=== PATIENT | female | born 1985 | race African-American/Black ===

== ENCOUNTER 2018-06-20 22:30 | Observation (INO) ==
[2018-06-20] MEDS ORDERED: Sod Chloride 0.9% Inj 1,000 ML IV.CONT SCH (23:45)
--- NOTE | 2018-06-20 23:51 | XR ---
EXAM DATE: 06/20/2018 11:46 PM EDT AGE/SEX: 33 years / Female INDICATIONS: Shortness of breath. CLINICAL DATA: This is the patient's initial encounter. Patient reports that signs and symptoms have been present for 1 day and indicates a pain score of 0/10. MEDICAL/SURGICAL HISTORY: None. None. COMPARISON: No prior exams available for comparison. FINDINGS: A single AP view of the chest demonstrates the lungs to be symmetrically aerated without evidence of mass, infiltrate or effusion. The cardiomediastinal contours are unremarkable. Osseous structures a re intact. CONCLUSION: The lungs are clear. Electronically signed by: Jayce Castillo MD 06/20/2018 11:50 PM EDT
[2018-06-21 00:10] LABS: Bilirubin,Urine Negative (Negative); Clarity,Urine Clear (Clear); Color,Urine Yellow (Yellw/Straw); Leukocyte Esterase,Urine Negative (Negative); Nitrite,Urine Negative (Negative); PH,Urine 6.5 (5.0-8.5); Specific Gravity,Urine 1.015 (1.002-1.035); Urobilinogen,Urine 0.2 mg/dL (Less than 2)
[2018-06-21 00:12] LABS: Baso # (Auto) 0.1 th/mm3 (0.0-0.2); Baso % (Auto) 0.8 % (0.0-2.0); Eos # (Auto) 0.1 th/mm3 (0.0-0.4); Eos % (Auto) 1.4 % (0.0-4.0); Hematocrit 32.1 % (35.0-46.0); Hemoglobin 11.2 gm/dL (11.6-15.3); Lymph % (Auto) 39.3 % (9.0-44.0); Mean Corpuscular Hemoglobin 28.5 pg (27.0-34.0); Mean Corpuscular Volume 81.3 fL (80.0-100.0); Mean Platelet Volume 8.4 fL (7.0-11.0); Mono # (Auto) 0.5 th/mm3 (0.0-0.9); Mono % (Auto) 4.9 % (0.0-8.0); Neut # (Auto) 5.5 th/mm3 (1.8-7.7); Neut % (Auto) 53.6 % (16.0-70.0); Platelet Count 330 th/mm3 (150-450); Red Blood Count 3.94 mil/mm3 (4.00-5.30); Red Cell Distribution Width 15.9 % (11.6-17.2); White Blood Count 10.2 th/mm3 (4.0-11.0)
[2018-06-21 00:19] LABS: Chloride 105 meq/L (98-107); Potassium 4.2 meq/L (3.5-5.1); Sodium 138 meq/L (136-145)
[2018-06-21 00:22] LABS: Calcium 8.1 mg/dL (8.5-10.1)
[2018-06-21 00:23] LABS: Albumin 2.8 g/dL (3.4-5.0); Anion Gap 8 meq/L (5-15); Blood Urea Nitrogen 15 mg/dL (7-18); Carbon Dioxide 24.9 meq/L (21.0-32.0); Glucose,Random 256 mg/dL (74-106); Lipase 212 U/L (73-393)
[2018-06-21 00:25] LABS: Alanine Aminotransferase 47 U/L (10-53); Aspartate Aminotransferase 90 U/L (15-37)
[2018-06-21 00:26] LABS: Glomerular Filtration Rate Greater Than 89 mL/min (>89)
[2018-06-21 00:27] LABS: RBC,Urine 0-3 /hpf (0-3); Squamous Epithelial Cell,Urine 0-5 /hpf (0-5); Total Protein 7.1 g/dL (6.4-8.2); WBC,Urine 0-5 /hpf (0-5)
[2018-06-21 00:28] LABS: Alkaline Phosphatase 107 U/L (45-117)
[2018-06-21 00:40] LABS: Creatine Kinase 3339 U/L (26-192)
[2018-06-21 00:52] LABS: CKMB Percent 0.7 % (0.0-4.0); Creatine Kinase MB 22.6 ng/mL (0.5-3.6)
[2018-06-21] MEDS ORDERED: Sod Chloride 0.9% Inj 1,000 ML IV.SIG SCH ×2 (01:45→03:30)
--- NOTE | 2018-06-21 02:04 | ED ---
HPI General Chief Complaint: Abdominal Pain Stated Complaint: Abd pain /trouble breathing Time Seen by Provider: 06/20/18 23:31 Source: patient Mode of arrival: ambulatory Limitations: no limitations History of Present Illness HPI narrative: 33-year-old female presents to the emergency department for complaint of abdominal pain and associated shortness of breath. Patient has history of hypertension and diabetes. Patient is out of all of her prescription medications. Patient does not take control pills. Patient states that the areas of abdominal pain are associated with soft tissue swelling. Patient denies any known injury. No fever chills. No nausea vomiting or diarrhea. No hematemesis no coffee-ground emesis no melena hematochezia. No urinary symptoms. No chest pain. Patient states that when she has abdominal pain it makes her feel short of breath. Patient is unable to identify exacerbating or alleviating factors. MD complaint: abdominal pain Onset (ago): day(s) Pain Consistency: constant Location: diffuse Severity: severe Quality: cramping, stabbing and fullness Radiation: none Migration to: LUQ, RUQ and epigastric Relieving factors: nothing Exacerbating factors: nothing Context: other Associated symptoms: nausea Treatments prior to arrival: other (nothing) Related Data Home Medications Medication Instructions Recorded Confirmed amlodipine [Norvasc] 10 mg PO DAILY 06/20/18 06/20/18 gabapentin 600 mg PO BID 06/20/18 06/20/18 lisinopril 20 mg PO DAILY 06/20/18 06/20/18 metformin 500 mg PO BID 06/20/18 06/20/18 omeprazole magnesium [Prilosec OTC] 20 mg PO DAILY 06/20/18 06/20/18 Allergies Allergy/AdvReac Type Severity Reaction Status Date / Time acetaminophen Allergy Severe Swelling Verified 06/20/18 22:49 Influenza Virus Vaccines Allergy Severe "FLU" Verified 06/20/18 22:49 propoxyphene Allergy Severe Swelling Verified 06/20/18 22:49 Review of Systems ROS: all other systems reviewed are negative [facility] Medical History Medical History History of chronic hypertension (Acute) Hx of diabetes mellitus (Acute) Hx of diabetic neuropathy (Acute) Social History Social History Substance History: No History of Abuse Second Hand Smoke Exposure: Yes Smoking Status: Light tobacco smoker Tobacco Type: Cigarettes How Often Do You Have a Drink Containing Alcohol: Never Recent Travel in [place] within the Last 8 Weeks: No Recent Out of Country Travel within the Last 8 Weeks: No Immunization History Tetanus Immunization: <5 Years Hx Influenza Vaccine This Season: No Exam Narrative Exam Narrative: GENERAL: Well-nourished, well-developed patient. SKIN: Focused skin assessment warm/dry. HEAD: Normocephalic. EYES: No scleral icterus. No injection or drainage. NECK: Supple, trachea midline. No JVD or lymphadenopathy. CARDIOVASCULAR: Regular rate and rhythm without murmurs, gallops, or rubs. RESPIRATORY: Breath sounds equal bilaterally. No accessory muscle use. GASTROINTESTINAL: Abdomen soft, diffusely tender to palpation without guarding or rebound, no ecchymosis no abrasion no erythema, no point tenderness, no palpable mass, no suprapubic pressure or bilateral lower quadrant tenderness to palpation however large pannus makes exam difficult, small reducible umbilical hernia nontender to direct palpation or reduction, nondistended. MUSCULOSKELETAL: No cyanosis, or edema. BACK: Nontender without obvious deformity. No CVA tenderness. Course Initial Documented Vital Signs Temperature 97.9 F 06/20/18 22:37 Pulse Rate 87 06/20/18 22:37 Respiratory Rate 16 06/20/18 22:37 Blood Pressure 131/75 06/20/18 22:37 Pulse Oximetry 97 06/20/18 22:37 Last Documented Vital Signs Temperature 97.9 F 06/20/18 22:37 Pulse Rate 87 06/21/18 02:30 Respiratory Rate 16 06/21/18 02:30 Blood Pressure 127/77 06/21/18 02:30 Pulse Oximetry 99 06/21/18 02:30 Medical Decision Making MDM Narrative Medical decision making narrative: 33-year-old female with known history of hypertension and diabetes presents with abdominal pain and complaint of shortness of breath. IV access obtained specimens collected and sent for resulting EKG performed sinus rhythm no acute ST elevation injury pattern or ectopy noted. 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 Patient states she did not hit her head did not have loss of was able to get back up off the ground and continue to work but was sent home from work by her employer due to her injury. Patient denies any upper extremity or lower extremity numbness tingling or weakness. Patient has had no ataxia gait. But does note that since her fall that is when she noted this discomfort to her left abdominal wall and pain when she would move or take a deep breath on her left lower lateral chest wall. Patient has not noticed any bruising to the site. Patient estimates the truck that height was approximately 4 feet and she fell from a standing height as she was moving backwards off of the truck and lost her balance. Patient denies other injury and denies other fall. Patient is aware of elevated [place] of 3300. CT reveals no acute findings on abdomen and pelvis is identified to have large left ovarian cyst although patient nontender in the lower abdomen symptoms seem to be primarily in the area of the left upper abdominal wall and left upper quadrant however mild diffuse tenderness throughout and no guarding or rebound no evidence of incarcerated umbilical hernia. Still unclear as to source of elevation of CK and unaware of trending of present CK patient continues complain of pain will give additional IV fluids for hydration with plan for observation admission discussed with [facility] MD for obs to trend CK. Possibly CK elevation related to abdominal wall contusion status post fall from pickup truck from standing versus due to chronic elevation versus due to unidentified maintenance prescription/medication versus early rhabdomyolysis. Medical Screen Exam Complete: Yes Emergency Medical Condition: Yes Differential Diagnosis Differential Diagnosis: Abdominal pain, gastritis, peptic ulcer disease, pancreatitis, esophageal spasm, cholecystitis, atypical chest pain, chest pain, PE, pneumonia, uncontrolled diabetes Medical Records Medical records reviewed: Yes I reviewed the patient's medical records. Lab Data Result diagrams: 06/21/18 00:00 06/21/18 00:00 POC Results POC Urine Results Negative Lab Results 06/21/18 06/21/18 06/21/18 Range/Units 00:00 00:00 00:00 CBC w Diff Auto diff final WBC 10.2 (4.0-11.0) th/mm3 RBC 3.94 L (4.00-5.30) mil/mm3 Hgb 11.2 L (11.6-15.3) gm/dL Hct 32.1 L (35.0-46.0) % MCV 81.3 (80.0-100.0) fL MCH 28.5 (27.0-34.0) pg MCHC 35.0 (32.0-36.0) % RDW 15.9 (11.6-17.2) % Plt Count 330 (150-450) th/mm3 MPV 8.4 (7.0-11.0) fL Neut % (Auto) 53.6 (16.0-70.0) % Lymph % (Auto) 39.3 (9.0-44.0) % Duchesne % (Auto) 4.9 (0.0-8.0) % Eos % (Auto) 1.4 (0.0-4.0) % Baso % (Auto) 0.8 (0.0-2.0) % Neut # (Auto) 5.5 (1.8-7.7) th/mm3 Lymph # (Auto) 4.0 (1.0-4.8) th/mm3 Duchesne # (Auto) 0.5 (0.0-0.9) th/mm3 Eos # (Auto) 0.1 (0.0-0.4) th/mm3 Baso # (Auto) 0.1 (0.0-0.2) th/mm3 WBC Differential . Differential Comment . Sodium 138 (136-145) meq/L Potassium 4.2 (3.5-5.1) meq/L Chloride 105 (98-107) meq/L Carbon Dioxide 24.9 (21.0-32.0) meq/L Anion Gap 8 (5-15) meq/L BUN 15 (7-18) mg/dL Creatinine 0.62 (0.50-1.00) mg/dL Estimated GFR Greater than 89 (>89) mL/min Random Glucose 256 H (74-106) mg/dL Calcium 8.1 L (8.5-10.1) mg/dL Total Bilirubin 0.1 L (0.2-1.0) mg/dL AST 90 H (15-37) U/L ALT 47 (10-53) U/L Alkaline Phosphatase 107 (45-117) U/L Total Creatine Kinase 3339 H (26-192) U/L CK-MB (CK-2) 22.6 H (0.5-3.6) ng/mL CK-MB (CK-2) % 0.7 (0.0-4.0) % Troponin I Less than 0.02 L (0.02-0.05) ng/mL Total Protein 7.1 (6.4-8.2) g/dL Albumin 2.8 L (3.4-5.0) g/dL Lipase 212 (73-393) U/L Urine Color Yellow (Yellw/Straw) Urine Clarity Clear (Clear) Urine pH 6.5 (5.0-8.5) Ur Specific Stevens 1.015 (1.002-1.035) Urine Protein Negative (Neg-Trace) mg/dL Urine Glucose (UA) 1000 or greater H (Negative) mg/dL Urine Ketones Negative (Negative) mg/dL Urine Occult Blood Negative (Negative) Urine Nitrate Negative (Negative) Urine Bilirubin Negative (Negative) Urine Urobilinogen 0.2 (Less than 2) mg/dL Ur Leukocyte Esterase Negative (Negative) Urine RBC 0-3 (0-3) /hpf Urine WBC 0-5 (0-5) /hpf Ur Squamous Epith Cells 0-5 (0-5) /hpf Micro UA Comment Culture not ind Ur Microscopic Review Microscopic reviewed Urine Culture Comments Culture not ind Urine Opiates Screen (Neg) Ur Barbiturates Screen (Neg) Ur Amphetamines Screen (Neg) U Benzodiazepines Scrn (Neg) Urine Cocaine Screen (Neg) U Cannabinoids Screen (Neg) 06/21/18 Range/Units 00:00 CBC w Diff WBC (4.0-11.0) th/mm3 RBC (4.00-5.30) mil/mm3 Hgb (11.6-15.3) gm/dL Hct (35.0-46.0) % MCV (80.0-100.0) fL MCH (27.0-34.0) pg MCHC (32.0-36.0) % RDW (11.6-17.2) % Plt Count (150-450) th/mm3 MPV (7.0-11.0) fL Neut % (Auto) (16.0-70.0) % Lymph % (Auto) (9.0-44.0) % Duchesne % (Auto) (0.0-8.0) % Eos % (Auto) (0.0-4.0) % Baso % (Auto) (0.0-2.0) % Neut # (Auto) (1.8-7.7) th/mm3 Lymph # (Auto) (1.0-4.8) th/mm3 Duchesne # (Auto) (0.0-0.9) th/mm3 Eos # (Auto) (0.0-0.4) th/mm3 Baso # (Auto) (0.0-0.2) th/mm3 WBC Differential Differential Comment Sodium (136-145) meq/L Potassium (3.5-5.1) meq/L Chloride (98-107) meq/L Carbon Dioxide (21.0-32.0) meq/L Anion Gap (5-15) meq/L BUN (7-18) mg/dL Creatinine (0.50-1.00) mg/dL Estimated GFR (>89) mL/min Random Glucose (74-106) mg/dL Calcium (8.5-10.1) mg/dL Total Bilirubin (0.2-1.0) mg/dL AST (15-37) U/L ALT (10-53) U/L Alkaline Phosphatase (45-117) U/L Total Creatine Kinase (26-192) U/L CK-MB (CK-2) (0.5-3.6) ng/mL CK-MB (CK-2) % (0.0-4.0) % Troponin I (0.02-0.05) ng/mL Total Protein (6.4-8.2) g/dL Albumin (3.4-5.0) g/dL Lipase (73-393) U/L Urine Color (Yellw/Straw) Urine Clarity (Clear) Urine pH (5.0-8.5) Ur Specific Stevens (1.002-1.035) Urine Protein (Neg-Trace) mg/dL Urine Glucose (UA) (Negative) mg/dL Urine Ketones (Negative) mg/dL Urine Occult Blood (Negative) Urine Nitrate (Negative) Urine Bilirubin (Negative) Urine Urobilinogen (Less than 2) mg/dL Ur Leukocyte Esterase (Negative) Urine RBC (0-3) /hpf Urine WBC (0-5) /hpf Ur Squamous Epith Cells (0-5) /hpf Micro UA Comment Ur Microscopic Review Urine Culture Comments Urine Opiates Screen Neg (Neg) Ur Barbiturates Screen Neg (Neg) Ur Amphetamines Screen Neg (Neg) U Benzodiazepines Scrn Neg (Neg) Urine Cocaine Screen Neg (Neg) U Cannabinoids Screen Neg (Neg) Imaging Data Radiologist's impression: Chest X-Ray 06/20/18 23:36 CONCLUSION: The lungs are clear. Abdomen/Pelvis CT 06/21/18 00:16 CONCLUSION: 1. Fat-containing periumbilical hernia. 2. 6.9 cm cystic left adnexal mass. Digital diagnosis includes ovarian cyst. Cystic ovarian neoplasm. No free fluid in the abdomen. 3. Mild hepatic steatosis. Discharge Plan Discharge Disposition Patient Disposition: 30 Still Patient Discharge Condition Condition: Stable Discharge Details Diagnosis: Elevated CK, Type 2 diabetes mellitus, Ovarian cyst Physicians Team ED Provider: Aylin Charles Primary Care Provider: UNKNOWN, Attending Provider: Manohar Fleming Status ED Status: Admitted Observation Patient
--- NOTE | 2018-06-21 02:11 | CT ---
EXAM DATE: 06/21/2018 1:50 AM EDT AGE/SEX: 33 years / Female INDICATIONS: Abdominal pain. CLINICAL DATA: This is the patient's initial encounter. Patient reports that signs and symptoms have been present for 1 day and indicates a pain score of 6/10. MEDICAL/SURGICAL HISTORY: Hypertension. Diabetes. None. ORAL CONTRAST: No oral contrast ingested. RADIATION DOSE: 22.40 CTDI (mGy) COMPARISON: [facility] [place], CT ABDOMEN & PELVIS W CONTRAST, 09/18/2015. . TECHNIQUE: Multiple contiguous axial images were obtained through the abdomen and pelvis following b olus infusion of 100 ml Omnipaque 350 (iohexol) nonionic water-soluble contrast as a single exam do se. No oral contrast ingested. Using automated exposure control and adjustment of the mA and/or kV a ccording to patient size, radiation dose was kept as low as reasonably achievable to obtain optimal d iagnostic quality images. DICOM format image data is available electronically for review and compari son. FINDINGS: Lower Lungs: The visualized lower lungs are clear. Liver: Mild diffuse hypodensity of the liver indicating mild hepatic steatosis. No focal mass. Gallbl adder within normal limits. Spleen: Homogeneous density without enlargement. Pancreas: Unremarkable without mass or calcification. Kidneys: Normal in size and shape. No evidence of mass or hydronephrosis. Adrenal Glands: Unremarkable. Aorta: The aorta and proximal iliac vessels are grossly unremarkable without aneurysmal dilation. Bowel/Mesentery: No evidence of bowel dilatation. No free air or free fluid. Appendix within normal limits. Abdominal Wall: Fat-containing periumbilical hernia measuring 3.5 cm in axial dimension. Retroperitoneum: No evidence of adenopathy in the retrocrural, para-aortic, or deep pelvic regions. Bladder: Contours are smooth. Reproductive Organs: 6.9 cm cystic left adnexal mass. 3 cm anterior lower uterine segment hypodense mass may represent a nabothian cyst. Inguinal: The inguinal region is unremarkable without evidence of adenopathy. Bony Structures: Unremarkable. CONCLUSION: 1. Fat-containing periumbilical hernia. 2. 6.9 cm cystic left adnexal mass. Digital diagnosis includes ovarian cyst. Cystic ovarian neoplasm . No free fluid in the abdomen. 3. Mild hepatic steatosis. Electronically signed by: Faraz Hunter MD 06/21/2018 2:10 AM EDT
[2018-06-21] MEDS ORDERED: Bisacodyl 10 MG Supp RECTAL PRN (03:18)
[2018-06-21] MEDS: Sod Chloride 0.9% Inj 1,000 ML IV.CONT SCH ×2 (03:42→15:38)
[2018-06-21 03:47] LABS: Amphetamine Screen,Urine Neg (Neg); Barbiturate Screen,Urine Neg (Neg); Cannabinoid Screen,Urine Neg (Neg); Cocaine Screen,Urine Neg (Neg)
[2018-06-21 03:54] LABS: Opiate Screen,Urine Neg (Neg)
[2018-06-21] MEDS ORDERED: Ketorolac Inj 30 MG/ML (IVP) Vial IV.PUSH ONE (04:44)
[2018-06-21 04:53] LABS: CKMB Percent 0.6 % (0.0-4.0); Creatine Kinase MB 19.5 ng/mL (0.5-3.6)
[2018-06-21] MEDS ORDERED: Dextrose 50% in Water 50 ML Vial IV.PUSH PRN (06:07)
[2018-06-21] MEDS: Insulin NovoLOG Aspart Correctional Sugar Inj SQ SCH ×3 (08:54→20:14)
[2018-06-21] MEDS ORDERED: Naloxone Inj 0.4 MG/ML Vial IV.PUSH PRN (08:59)
[2018-06-21] MEDS: Lisinopril 20 MG Tablet PO SCH (09:46)
[2018-06-21] MEDS: Senna/Docusate Sodium 8.6/50 MG Tablet PO SCH ×2 (09:46→20:08)
[2018-06-21] MEDS: amLODIPine 10 MG Tablet PO SCH (09:46)
[2018-06-21] MEDS: Gabapentin 300 MG Capsule PO SCH ×2 (09:46→20:07)
[2018-06-21] MEDS: Pantoprazole Sodium 20 MG DR Tablet PO SCH (09:46)
--- NOTE | 2018-06-21 11:04 | P.HP ---
History of Present Illness Primary Care Physician: UNKNOWN Chief Complaint: Abdominal pain History of Present Illness: This is a 33-year-old female with a history of hypertension, diabetes mellitus with neuropathy and obesity. She presents to the emergency department because of abdominal pain. Reports of chronic intermittent bilateral upper quadrant pain making it difficult for her to breathe. Yesterday she had a fall while at work. She was moving plants climbing off a pickup truck bed when she lost her balance and fell backwards and landed on her left side. She then presents to the emergency department because of worsening discomfort. Denies fever, chills , nausea, vomiting UTI symptoms, constipation and diarrhea. States her pain is pleuritic worse with body movements. Abdominal CT was performed which showed fat-containing periumbilical hernia, 6.9 cm cystic left adnexal mass and mild hepatic steatosis. She also has rhabdomyolysis CK over 3000. Patient also reports of migraine headache which she describes a right sided throbbing discomfort associated with increased sensitivity to light and loud noise. Denies visual changes, neck pain, numbness and focal weakness. All other systems reviewed negative Review of Systems All other systems reviewed negative except as stated in HPI PMFSH - History History Provided By: Patient - Medical History Medical History: Medical History (Last Reviewed 06/21/18 @ 12:49 by Bonifacio Mooney MD) History of chronic hypertension Hx of diabetes mellitus Hx of diabetic neuropathy - Family History Family History: Family History (Last Updated 06/21/18 @ 12:49 by Bonifacio Mooney MD) Other Family history of cancer - Tobacco History Second Hand Smoke Exposure: Yes Tobacco Use In Past 30 Days: Yes Smoking Status: Current every day smoker Tobacco Type: Cigarettes - Alcohol History How Often Do You Have a Drink Containing Alcohol: Never - Substance Use History Substance History: No History of Abuse - Travel History Recent Travel in the [place] Within the Last 8 Weeks: No Recent Travel Out of the Country Within the Last 8 Weeks: No - Immunization History Tetanus Immunization: <5 Years Hx Influenza Vaccine This Season: No Medications and Allergies Active Medications: Active Medications Al Hydroxide/Mg Hydroxide (Milk Of Amie Liq) 30 ml PO Q12H PRN PRN Reason: Mild Constipation Amlodipine Besylate (Norvasc) 10 mg PO DAILY [facility] Last Admin: 06/21/18 09:46 Dose: 10 mg Bisacodyl (Dulcolax Supp) 10 mg RECTAL DAILY PRN PRN Reason: SEVERE CONSITIPATION Dextrose (D50w Vial) 50 ml IV.PUSH UNSCH PRN PRN Reason: PER HYPOGLYCEMIA PROTOCOL Gabapentin (Neurontin) 600 mg PO BID [facility] Last Admin: 06/21/18 09:46 Dose: 600 mg Glucagon (Glucagon Inj) 1 mg OTHER PRN PRN PRN Reason: for Hypoglycemia Protocol Sodium Chloride (Ns Inj) 1,000 mls @ 0 mls/hr IV.SIG BOLUS [facility] Last Infusion: 06/21/18 04:29 Dose: Infused Sodium Chloride (Ns Inj) 1,000 mls @ 150 mls/hr IV.CONT .Q6H40M [facility] Last Infusion: 06/21/18 04:40 Dose: 150 mls/hr Sodium Chloride (Ns Inj) 1,000 mls @ 0 mls/hr IV.SIG BOLUS [facility] Ibuprofen (Motrin) 400 mg PO Q6HR PRN PRN Reason: PAIN 1-10/HEADACHE Insulin Aspart (Novolog Insulin Correctional Sugar Inj) 0 unit SQ ACHS [facility]; Protocol Last Admin: 06/21/18 08:54 Dose: Not Given Ketorolac Tromethamine (Toradol Inj) 15 mg IV.PUSH Q6H PRN PRN Reason: BREAKTHROUGH PAIN Stop: 06/26/18 08:58 Lactulose (Lactulose Liq) 30 ml PO DAILY PRN PRN Reason: SEVERE CONSITIPATION Lisinopril (Prinivil) 20 mg PO DAILY [facility] Last Admin: 06/21/18 09:46 Dose: 20 mg Naloxone HCl (Narcan Inj) 0.4 mg IV.PUSH UNSCH PRN PRN Reason: SEE LABEL COMMENTS Ondansetron HCl (Zofran Inj) 4 mg IV.PUSH Q6H PRN PRN Reason: NAUSEA OR VOMITING Pantoprazole Sodium (Protonix) 20 mg PO DAILY [facility] Last Admin: 06/21/18 09:46 Dose: 20 mg Senna/Docusate Sodium (Johana-Colace) 1 tab PO BID [facility] Last Admin: 06/21/18 09:46 Dose: 1 tab Sennosides (Senokot) 17.2 mg PO Q12H PRN PRN Reason: Moderate Constipation Sodium Chloride (Ns Flush) 2 ml IV.FLUSH PRN PRN PRN Reason: FLUSH AFTER USING IV ACCESS Allergies Allergy/AdvReac Type Severity Reaction Status Date / Time acetaminophen Allergy Severe Swelling Verified 06/20/18 22:49 Influenza Virus Vaccines Allergy Severe "FLU" Verified 06/20/18 22:49 propoxyphene Allergy Severe Swelling Verified 06/20/18 22:49 Home Medications Medication Instructions Recorded Confirmed Type amlodipine [Norvasc] 10 mg PO DAILY 06/20/18 06/20/18 History gabapentin 600 mg PO BID 06/20/18 06/20/18 History lisinopril 20 mg PO DAILY 06/20/18 06/20/18 History metformin 500 mg PO BID 06/20/18 06/20/18 History omeprazole magnesium [Prilosec OTC] 20 mg PO DAILY 06/20/18 06/20/18 History Exam Vital signs: Vital Signs 06/20/18 22:37 06/20/18 23:19 06/20/18 23:45 Temperature 97.9 F Pulse Rate 87 87 90 Respiratory Rate 16 18 Blood Pressure 131/75 119/61 Pulse Oximetry 97 100 06/21/18 02:30 06/21/18 05:10 06/21/18 08:00 Temperature 96.4 F L 97.9 F Pulse Rate 87 79 69 Respiratory Rate 16 20 19 Blood Pressure 127/77 119/66 117/63 Pulse Oximetry 99 95 96 Intake & Output 06/20/18 06/21/18 06/21/18 18:59 06:59 18:59 Intake Total 1000 / 1000 240 / 240 Balance 1000 / 1000 240 / 240 Weight 143.7 kg Intake: IV 1000 / 1000 NS Inj 1,000 ML @ Wide Open IV. 1000 / 1000 SIG BOLUS [facility] Rx#:[id number] Oral 240 / 240 Other: # Voids 1 Weight On Admission 142.1 kg Narrative: GENERAL: Well-developed, obese in no distress SKIN: Warm and dry. HEAD: Atraumatic. Normocephalic. EYES: Pupils equal and round. No scleral icterus. No injection or drainage. ENT: No nasal bleeding or discharge. Mucous membranes pink and moist. NECK: Trachea midline. No JVD. CARDIOVASCULAR: Regular rate and rhythm. RESPIRATORY: No accessory muscle use. Clear to auscultation. Breath sounds equal bilaterally. GASTROINTESTINAL: Abdomen soft, non-tender, nondistended. MUSCULOSKELETAL: Extremities without clubbing, cyanosis, or edema. No obvious deformities. NEUROLOGICAL: Awake and alert. No obvious cranial nerve deficits. Motor grossly within normal limits. Five out of 5 muscle strength in the arms and legs. Normal speech. PSYCHIATRIC: Appropriate mood and affect; insight and judgment normal. Results - Labs CBC & Chem 7: 06/21/18 00:00 06/21/18 00:00 Labs: Laboratory Results - last 24 hr 06/21/18 06/21/18 06/21/18 00:00 00:00 00:00 CBC w Diff Auto diff final WBC 10.2 RBC 3.94 L Hgb 11.2 L Hct 32.1 L MCV 81.3 MCH 28.5 MCHC 35.0 RDW 15.9 Plt Count 330 MPV 8.4 Neut % (Auto) 53.6 Lymph % (Auto) 39.3 [place] % (Auto) 4.9 Eos % (Auto) 1.4 Baso % (Auto) 0.8 Neut # (Auto) 5.5 Lymph # (Auto) 4.0 [place] # (Auto) 0.5 Eos # (Auto) 0.1 Baso # (Auto) 0.1 WBC Differential . Differential Comment . Sodium 138 Potassium 4.2 Chloride 105 Carbon Dioxide 24.9 Anion Gap 8 BUN 15 Creatinine 0.62 Estimated GFR Greater than 89 POC Glucose Random Glucose 256 H Calcium 8.1 L Total Bilirubin 0.1 L AST 90 H ALT 47 Alkaline Phosphatase 107 Total Creatine Kinase 3339 H CK-MB (CK-2) 22.6 H CK-MB (CK-2) % 0.7 Troponin I Less than 0.02 L Total Protein 7.1 Albumin 2.8 L Lipase 212 Urine Color Yellow Urine Clarity Clear Urine pH 6.5 Ur Specific [place] 1.015 Urine Protein Negative Urine Glucose (UA) 1000 or greater H Urine Ketones Negative Urine Occult Blood Negative Urine Nitrate Negative Urine Bilirubin Negative Urine Urobilinogen 0.2 Ur Leukocyte Esterase Negative Urine RBC 0-3 Urine WBC 0-5 Ur Squamous Epith Cells 0-5 Micro UA Comment Culture not ind Ur Microscopic Review Microscopic reviewed Urine Culture Comments Culture not ind Urine Opiates Screen Ur Barbiturates Screen Ur Amphetamines Screen U Benzodiazepines Scrn Urine Cocaine Screen U Cannabinoids Screen 06/21/18 06/21/18 06/21/18 00:00 03:40 08:51 CBC w Diff WBC RBC Hgb Hct MCV MCH MCHC RDW Plt Count MPV Neut % (Auto) Lymph % (Auto) [place] % (Auto) Eos % (Auto) Baso % (Auto) Neut # (Auto) Lymph # (Auto) [place] # (Auto) Eos # (Auto) Baso # (Auto) WBC Differential Differential Comment Sodium Potassium Chloride Carbon Dioxide Anion Gap BUN Creatinine Estimated GFR POC Glucose 158 H Random Glucose Calcium Total Bilirubin AST ALT Alkaline Phosphatase Total Creatine Kinase 3152 H CK-MB (CK-2) 19.5 H CK-MB (CK-2) % 0.6 Troponin I Total Protein Albumin Lipase Urine Color Urine Clarity Urine pH Ur Specific [place] Urine Protein Urine Glucose (UA) Urine Ketones Urine Occult Blood Urine Nitrate Urine Bilirubin Urine Urobilinogen Ur Leukocyte Esterase Urine RBC Urine WBC Ur Squamous Epith Cells Micro UA Comment Ur Microscopic Review Urine Culture Comments Urine Opiates Screen Neg Ur Barbiturates Screen Neg Ur Amphetamines Screen Neg U Benzodiazepines Scrn Neg Urine Cocaine Screen Neg U Cannabinoids Screen Neg 06/21/18 09:48 CBC w Diff WBC RBC Hgb Hct MCV MCH MCHC RDW Plt Count MPV Neut % (Auto) Lymph % (Auto) [place] % (Auto) Eos % (Auto) Baso % (Auto) Neut # (Auto) Lymph # (Auto) [place] # (Auto) Eos # (Auto) Baso # (Auto) WBC Differential Differential Comment Sodium Potassium Chloride Carbon Dioxide Anion Gap BUN Creatinine Estimated GFR POC Glucose Random Glucose Calcium Total Bilirubin AST ALT Alkaline Phosphatase Total Creatine Kinase 2657 H CK-MB (CK-2) CK-MB (CK-2) % Troponin I Total Protein Albumin Lipase Urine Color Urine Clarity Urine pH Ur Specific [place] Urine Protein Urine Glucose (UA) Urine Ketones Urine Occult Blood Urine Nitrate Urine Bilirubin Urine Urobilinogen Ur Leukocyte Esterase Urine RBC Urine WBC Ur Squamous Epith Cells Micro UA Comment Ur Microscopic Review Urine Culture Comments Urine Opiates Screen Ur Barbiturates Screen Ur Amphetamines Screen U Benzodiazepines Scrn Urine Cocaine Screen U Cannabinoids Screen - Imaging Impressions Chest X-Ray 06/20/18 23:36 CONCLUSION: The lungs are clear. Abdomen/Pelvis CT 06/21/18 00:16 CONCLUSION: 1. Fat-containing periumbilical hernia. 2. 6.9 cm cystic left adnexal mass. Digital diagnosis includes ovarian cyst. Cystic ovarian neoplasm. No free fluid in the abdomen. 3. Mild hepatic steatosis. Caprini VTE Risk Assessment Caprini VTE Risk Assessment: No/Low Risk (score <= 1) Caprini Risk Assessment Model: Point Value = 1 Point Value = 2 Point Value = 3 Point Value = 5 Age 41-60 Minor surgery BMI > 25 kg/m2 Swollen legs Varicose veins or History of unexplained or recurrent spontaneous Oral contraceptives or hormone replacement Sepsis (< 1 month) Serious lung disease, including pneumonia (< 1 month) Abnormal pulmonary function Acute myocardial infarction Congestive heart failure (< 1 month) History of inflammatory bowel disease Medical patient at bed rest Age 61-74 Arthroscopic surgery Major open surgery (> 45 min) Laparoscopic surgery (> 45 min) Malignancy Confined to bed (> 72 hours) Immobilizing plaster cast Central venous access Age >= 75 History of VTE Family history of VTE Factor V Leiden Prothrombin [id number] Lupus anticoagulant Anticardiolipin antibodies Elevated serum homocysteine Heparin-induced thrombocytopenia Other congenital or acquired thrombophilia Stroke (< 1 month) Elective arthroplasty Hip, pelvis, or leg fracture Acute spinal cord injury (< 1 month) Prophylaxis Regimen: Total Risk Factor Score Risk Level Prophylaxis Regimen 0-1 Low Early ambulation 2 Moderate Order ONE of the following: *Sequential Compression Device (SCD) *Heparin 5000 units SQ BID 3-4 Higher Order ONE of the following medications: *Heparin 5000 units SQ TID *Enoxaparin/Lovenox 40 mg SQ daily (WT < 150 kg, CrCl > 30 mL/min) *Enoxaparin/Lovenox 30 mg SQ daily (WT < 150 kg, CrCl > 10-29 mL/min) *Enoxaparin/Lovenox 30 mg SQ BID (WT < 150 kg, CrCl > 30 mL/min) AND/OR *Sequential Compression Device (SCD) 5 or more Highest Order ONE of the following medications: *Heparin 5000 units SQ TID (Preferred with Epidurals) *Enoxaparin/Lovenox 40 mg SQ daily (WT < 150 kg, CrCl > 30 mL/min) *Enoxaparin/Lovenox 30 mg SQ daily (WT < 150 kg, CrCl > 10-29 mL/min) *Enoxaparin/Lovenox 30 mg SQ BID (WT < 150 kg, CrCl > 30 mL/min) AND *Sequential Compression Device (SCD) Assessment and Plan - Plan This is a 33-year-old female with a history of hypertension, diabetes mellitus with neuropathy and obesity. She presents to the emergency department because of worsening abdominal pain affecting her breathing status post fall. States her pain is pleuritic worse with body movements. Abdominal CT was performed which showed fat-containing periumbilical hernia, 6.9 cm cystic left adnexal mass and mild hepatic steatosis. She also has rhabdomyolysis CK over 3000. Patient also reports of migraine headache which she describes a right sided throbbing discomfort associated with increased sensitivity to light and loud noise. Rhabdomyolysis status post fall. Continue IV hydration and repeat CK in the morning Musculoskeletal pain with back contusion. Symptomatic treatment ice. Migraine headaches. Trial Imitrex. IV Toradol as needed Left adnexal mass. Outpatient follow-up with [facility]. DVT prophylaxis with SCD and early ambulation Discharge Planning: Possible discharge in the morning
[2018-06-21 11:06] LABS: CKMB Percent 0.6 % (0.0-4.0); Creatine Kinase MB 16.1 ng/mL (0.5-3.6)
[2018-06-21] MEDS: Ketorolac Inj 30 MG/ML (IVP) Vial IV.PUSH PRN (20:06)
--- NOTE | 2018-06-21 22:59 | ECG ---
Date Performed: 06/20/2018 Time Performed: 23:48:55 PTAGE: 33 years EKG: Sinus rhythm NORMAL ECG NO PREVIOUS TRACING DOCTOR: Antonio Mederos Interpretating Date/Time 06/21/2018 22:57:22
[2018-06-22] MEDS: Sod Chloride 0.9% Inj 1,000 ML IV.CONT SCH ×4 (00:06→14:12)
[2018-06-22] MEDS: Melatonin 5 MG Tablet PO PRN ×2 (00:07→20:41)
[2018-06-22] MEDS: Ketorolac Inj 30 MG/ML (IVP) Vial IV.PUSH PRN ×2 (05:10→10:24)
[2018-06-22 06:34] LABS: Baso % (Auto) 0.5 % (0.0-2.0); Eos # (Auto) 0.2 th/mm3 (0.0-0.4); Eos % (Auto) 2.3 % (0.0-4.0); Hematocrit 31.8 % (35.0-46.0); Lymph # (Auto) 3.1 th/mm3 (1.0-4.8); Lymph % (Auto) 34.6 % (9.0-44.0); Mean Corpuscular HGB Conc 34.7 % (32.0-36.0); Mean Corpuscular Hemoglobin 28.7 pg (27.0-34.0); Mean Corpuscular Volume 82.6 fL (80.0-100.0); Mean Platelet Volume 8.3 fL (7.0-11.0); Mono # (Auto) 0.4 th/mm3 (0.0-0.9); Mono % (Auto) 4.1 % (0.0-8.0); Neut # (Auto) 5.2 th/mm3 (1.8-7.7); Neut % (Auto) 58.5 % (16.0-70.0); Platelet Count 344 th/mm3 (150-450); Red Blood Count 3.85 mil/mm3 (4.00-5.30); Red Cell Distribution Width 15.3 % (11.6-17.2); White Blood Count 8.9 th/mm3 (4.0-11.0)
[2018-06-22] MEDS: Ibuprofen 400 MG Tablet PO PRN ×2 (06:38→14:16)
[2018-06-22 06:41] LABS: Chloride 106 meq/L (98-107); Potassium 4.3 meq/L (3.5-5.1); Sodium 138 meq/L (136-145)
[2018-06-22 07:34] LABS: Anion Gap 9 meq/L (5-15); Carbon Dioxide 23.4 meq/L (21.0-32.0)
[2018-06-22 07:35] LABS: Alanine Aminotransferase 54 U/L (10-53); Aspartate Aminotransferase 74 U/L (15-37); Blood Urea Nitrogen 13 mg/dL (7-18); Creatine Kinase 1943 U/L (26-192); Glomerular Filtration Rate Greater Than 89 mL/min (>89); Glucose,Random 285 mg/dL (74-106); Total Protein 6.6 g/dL (6.4-8.2)
[2018-06-22 07:36] LABS: Albumin 2.7 g/dL (3.4-5.0); Alkaline Phosphatase 104 U/L (45-117)
[2018-06-22 08:08] LABS: CKMB Percent 0.5 % (0.0-4.0); Creatine Kinase MB 10.2 ng/mL (0.5-3.6)
[2018-06-22] MEDS: Pantoprazole Sodium 20 MG DR Tablet PO SCH (09:09)
[2018-06-22] MEDS: Senna/Docusate Sodium 8.6/50 MG Tablet PO SCH ×2 (09:09→20:39)
[2018-06-22] MEDS: amLODIPine 10 MG Tablet PO SCH (09:09)
[2018-06-22] MEDS: Gabapentin 300 MG Capsule PO SCH ×2 (09:09→20:41)
[2018-06-22] MEDS: Lisinopril 20 MG Tablet PO SCH (09:09)
[2018-06-22] MEDS: Insulin NovoLOG Aspart Correctional Sugar Inj SQ SCH ×5 (09:15→20:45)
--- NOTE | 2018-06-22 14:11 | P.PNIM ---
Subjective Interval history: Patient still has pain at left side which is the area of trauma. Total creatine kinase has decreased from 3339 down to 1943. No new complaints. Blood sugars are not stable today. Metformin is on hold from previous CT with contrast and now secondary to rhabdomyolysis with risk for kidney injury. Physical Exam Vital signs: Vital Signs 06/21/18 16:00 06/21/18 20:00 06/22/18 00:00 Temperature 96.6 F L 96.5 F L 96.6 F L Pulse Rate 75 67 79 Respiratory Rate 20 18 22 Blood Pressure 117/58 L 121/68 121/56 L Pulse Oximetry 94 L 96 96 06/22/18 08:00 06/22/18 12:00 Temperature 97.8 F 98.4 F Pulse Rate 67 68 Respiratory Rate 19 19 Blood Pressure 119/57 L 112/66 Pulse Oximetry 98 96 Intake & Output 06/21/18 06/22/18 06/22/18 18:59 06:59 18:59 Intake Total 1240 / 1240 2720 / 2720 3540 / 3540 Output Total 225 / 225 400 / 400 Balance 1240 / 1240 2495 / 2495 3140 / 3140 Intake: IV 1000 / 1000 1999 3000 / 3000 NS Inj 1,000 ML @ 75 mls/hr IV. 1000 / 1000 1999 CONT .[id number] [facility] Rx#: [id number] Oral 240 / 240 720 / 720 540 / 540 Output: Urine 225 / 225 400 / 400 Stool 0 / 0 Other: Date of Last Bowel Movement 06/22/18 Narrative: GENERAL: NAD, A&Ox3 HEAD: Normocephalic. NECK: Supple, trachea midline. No lymphadenopathy. EYES: No scleral icterus. No injection or drainage. CARDIOVASCULAR: Regular rate and rhythm without murmurs, gallops, or rubs. RESPIRATORY: Breath sounds equal bilaterally. No accessory muscle use. GASTROINTESTINAL: Abdomen soft, non-tender, nondistended. MUSCULOSKELETAL: No cyanosis, or edema. SKIN: Warm and dry. NEURO: No focal neurological deficits. Results - Labs CBC & Chem 7: 06/22/18 05:20 06/22/18 05:20 Laboratory Results - last 24 hr 06/21/18 06/21/18 06/22/18 16:03 20:10 05:20 CBC w Diff Auto diff final WBC 8.9 RBC 3.85 L Hgb 11.0 L Hct 31.8 L MCV 82.6 MCH 28.7 MCHC 34.7 RDW 15.3 Plt Count 344 MPV 8.3 Neut % (Auto) 58.5 Lymph % (Auto) 34.6 [place] % (Auto) 4.1 Eos % (Auto) 2.3 Baso % (Auto) 0.5 Neut # (Auto) 5.2 Lymph # (Auto) 3.1 [place] # (Auto) 0.4 Eos # (Auto) 0.2 Baso # (Auto) 0.0 WBC Differential . Differential Comment . Sodium Potassium Chloride Carbon Dioxide Anion Gap BUN Creatinine Estimated GFR POC Glucose 236 H 125 H Random Glucose Calcium Prot Corrected Calcium Total Bilirubin AST ALT Alkaline Phosphatase Total Creatine Kinase CK-MB (CK-2) CK-MB (CK-2) % Total Protein Albumin 06/22/18 06/22/18 06/22/18 05:20 09:07 12:44 CBC w Diff WBC RBC Hgb Hct MCV MCH MCHC RDW Plt Count MPV Neut % (Auto) Lymph % (Auto) [place] % (Auto) Eos % (Auto) Baso % (Auto) Neut # (Auto) Lymph # (Auto) [place] # (Auto) Eos # (Auto) Baso # (Auto) WBC Differential Differential Comment Sodium 138 Potassium 4.3 Chloride 106 Carbon Dioxide 23.4 Anion Gap 9 BUN 13 Creatinine 0.65 Estimated GFR Greater than 89 POC Glucose 202 H 355 H Random Glucose 285 H Calcium 7.0 L* D Prot Corrected Calcium 7.3 L* Total Bilirubin 0.4 AST 74 H ALT 54 H Alkaline Phosphatase 104 Total Creatine Kinase 1943 H CK-MB (CK-2) 10.2 H CK-MB (CK-2) % 0.5 Total Protein 6.6 Albumin 2.7 L Assessment and Plan - Assessment (1) Rhabdomyolysis Code(s): M62.82 - Rhabdomyolysis Status: Acute (2) Elevated CK Code(s): R74.8 - Abnormal levels of other serum enzymes Status: Acute (3) Type 2 diabetes mellitus Code(s): E11.9 - Type 2 diabetes mellitus without complications Status: Acute - Plan 33-year-old female admitted secondary to rhabdomyolysis related to trauma from a fall out of a pickup truck Rhabdomyolysis Musculoskeletal pain with back contusion Status post trauma, fall from pickup truck Continue IV hydration Follow renal function Slow downward trend in creatine kinase thus far Further improvement desired before clearance for discharge approved Repeat CK in the morning To new pain treatments NSAIDs added Metformin on hold Migraine headaches. Imitrex. IV Toradol as needed Left adnexal mass. Ovarian cyst suspected Outpatient follow-up with [facility]. DVT prophylaxis Ambulation and SCDs Discharge Planning: Discharge pending further decrease in creatinine kinase
[2018-06-22] MEDS ORDERED: Naproxen 250 MG Tablet PO ONE (15:00)
[2018-06-22] MEDS: Naproxen 250 MG Tablet PO SCH (20:39)
[2018-06-23] MEDS: Ibuprofen 400 MG Tablet PO PRN ×2 (00:03→06:24)
[2018-06-23 06:05] LABS: Baso # (Auto) 0.1 th/mm3 (0.0-0.2); Baso % (Auto) 0.9 % (0.0-2.0); Eos # (Auto) 0.1 th/mm3 (0.0-0.4); Eos % (Auto) 1.3 % (0.0-4.0); Hematocrit 30.9 % (35.0-46.0); Hemoglobin 10.2 gm/dL (11.6-15.3); Lymph # (Auto) 2.9 th/mm3 (1.0-4.8); Mean Corpuscular HGB Conc 33.1 % (32.0-36.0); Mean Corpuscular Hemoglobin 27.7 pg (27.0-34.0); Mean Corpuscular Volume 83.6 fL (80.0-100.0); Mean Platelet Volume 8.3 fL (7.0-11.0); Mono # (Auto) 0.4 th/mm3 (0.0-0.9); Mono % (Auto) 4.4 % (0.0-8.0); Neut # (Auto) 5.2 th/mm3 (1.8-7.7); Neut % (Auto) 60.4 % (16.0-70.0); Platelet Count 302 th/mm3 (150-450); Red Blood Count 3.69 mil/mm3 (4.00-5.30); Red Cell Distribution Width 15.4 % (11.6-17.2); White Blood Count 8.7 th/mm3 (4.0-11.0)
[2018-06-23 06:20] LABS: Chloride 108 meq/L (98-107); Potassium 4.2 meq/L (3.5-5.1); Sodium 142 meq/L (136-145)
[2018-06-23 06:38] LABS: Alanine Aminotransferase 42 U/L (10-53); Albumin 2.8 g/dL (3.4-5.0); Alkaline Phosphatase 92 U/L (45-117); Anion Gap 8 meq/L (5-15); Aspartate Aminotransferase 46 U/L (15-37); Blood Urea Nitrogen 9 mg/dL (7-18); Calcium 7.9 mg/dL (8.5-10.1); Carbon Dioxide 26.3 meq/L (21.0-32.0); Glomerular Filtration Rate Greater Than 89 mL/min (>89); Glucose,Random 186 mg/dL (74-106); Magnesium 1.7 mg/dL (1.5-2.5); Phosphorus 2.8 mg/dL (2.5-4.9); Total Protein 6.7 g/dL (6.4-8.2)
[2018-06-23 07:03] LABS: Creatine Kinase 1028 U/L (26-192)
[2018-06-23 07:35] LABS: CKMB Percent 0.4 % (0.0-4.0); Creatine Kinase MB 4.6 ng/mL (0.5-3.6)
[2018-06-23] MEDS: Pantoprazole Sodium 20 MG DR Tablet PO SCH (08:20)
[2018-06-23] MEDS: Gabapentin 300 MG Capsule PO SCH (08:20)
[2018-06-23] MEDS: Naproxen 250 MG Tablet PO SCH (08:20)
[2018-06-23] MEDS: amLODIPine 10 MG Tablet PO SCH (08:20)
[2018-06-23] MEDS: Senna/Docusate Sodium 8.6/50 MG Tablet PO SCH (08:21)
[2018-06-23] MEDS: Lisinopril 20 MG Tablet PO SCH (08:21)
[2018-06-23 08:53] VITALS: BP 132/65; PULSE 76; RESP 16; TEMP 97.8; O2SAT 100
[2018-06-23] MEDS: Insulin NovoLOG Aspart Correctional Sugar Inj SQ SCH (08:59)
--- NOTE | 2018-06-23 10:54 | P.DS ---
Date of admission: 06/21/18 03:18 Primary care physician: UNKNOWN Brief History from admission: This is a 33-year-old female with a history of hypertension, diabetes mellitus with neuropathy and obesity. She presents to the emergency department because of abdominal pain. Reports of chronic intermittent bilateral upper quadrant pain making it difficult for her to breathe. Yesterday she had a fall while at work. She was moving plants climbing off a pickup truck bed when she lost her balance and fell backwards and landed on her left side. She then presents to the emergency department because of worsening discomfort. Denies fever, chills , nausea, vomiting UTI symptoms, constipation and diarrhea. States her pain is pleuritic worse with body movements. Abdominal CT was performed which showed fat-containing periumbilical hernia, 6.9 cm cystic left adnexal mass and mild hepatic steatosis. She also has rhabdomyolysis CK over 3000. Patient also reports of migraine headache which she describes a right sided throbbing discomfort associated with increased sensitivity to light and loud noise. Denies visual changes, neck pain, numbness and focal weakness. All other systems reviewed negative DS: Diagnosis - Discharge Diagnosis (1) Rhabdomyolysis Status: Acute (2) Elevated CK Status: Acute (3) Type 2 diabetes mellitus Status: Acute DS: Medications - Discharge Medications Prescriptions: lisinopril 20 mg PO DAILY #30 tab metformin 500 mg PO BID #60 tab sumatriptan succinate [Imitrex] 25 mg PO Q2-4H PRN #4 tab PRN Reason: Headache DS: Summary Hospital Course: Mrs. Damon is a 33-year-old female. She has a past medical history of diabetes. She came into the emergency department secondary to right-sided pain. Previously she had fallen out of a pickup truck and suffered deep soft tissue trauma. Rhabdomyolysis was present and patient was treated with IV fluids and monitoring of renal function. She started with a creatine kinase over 3000 and has graduated down to approximately 1000. Her last stepdown has been off of IV fluids and no evidence of renal compromise. Patient at this point is medically stable and cleared for discharge to home today. - Time Spent with Patient Total time spent providing and/or coordinating discharge services: Less than 30 minutes - Quality: VTE Deep Vein Thrombosis/Pulmonary Embolism Present on Admission: No Exam Vital signs: Vital Signs 06/22/18 12:00 06/22/18 16:00 06/22/18 20:00 Temperature 98.4 F 97.0 F L 97.8 F Pulse Rate 68 79 64 Respiratory Rate 19 22 20 Blood Pressure 112/66 128/73 123/64 Pulse Oximetry 96 94 L 97 06/23/18 00:00 06/23/18 08:00 Temperature 96.9 F L 97.8 F Pulse Rate 79 76 Respiratory Rate 20 16 Blood Pressure 116/57 L 132/65 Pulse Oximetry 97 100 Intake & Output 06/22/18 06/23/18 06/23/18 18:59 06:59 18:59 Intake Total 4540 / 4540 720 / 720 Output Total 400 / 400 Balance 4140 / 4140 720 / 720 Weight 144.1 kg Intake: IV 4000 / 4000 NS Inj 1,000 ML @ 75 mls/hr IV. 3000 / 3000 CONT .[id number] [facility] Rx#: [id number] Oral 540 / 540 720 / 720 Output: Urine 400 / 400 Stool 0 / 0 Other: # Voids 2 2 Date of Last Bowel Movement 06/22/18 06/22/18 Results Procedures completed during hospitalization: None Labs on day of discharge: Labs from last 24 hours 06/23/18 06/23/18 06/23/18 07:38 04:50 04:50 CBC w Diff Auto diff final WBC 8.7 RBC 3.69 L Hgb 10.2 L Hct 30.9 L MCV 83.6 MCH 27.7 MCHC 33.1 RDW 15.4 Plt Count 302 MPV 8.3 Neut % (Auto) 60.4 Lymph % (Auto) 33.0 [place] % (Auto) 4.4 Eos % (Auto) 1.3 Baso % (Auto) 0.9 Neut # (Auto) 5.2 Lymph # (Auto) 2.9 [place] # (Auto) 0.4 Eos # (Auto) 0.1 Baso # (Auto) 0.1 WBC Differential . Differential Comment . Sodium 142 Potassium 4.2 Chloride 108 H Carbon Dioxide 26.3 Anion Gap 8 BUN 9 Creatinine 0.56 Estimated GFR Greater than 89 POC Glucose 230 H Random Glucose 186 H Calcium 7.9 L D Phosphorus 2.8 Magnesium 1.7 Total Bilirubin 0.2 AST 46 H ALT 42 Alkaline Phosphatase 92 Total Creatine Kinase 1028 H CK-MB (CK-2) 4.6 H CK-MB (CK-2) % 0.4 Total Protein 6.7 Albumin 2.8 L 06/22/18 06/22/18 06/22/18 20:24 16:12 12:44 CBC w Diff WBC RBC Hgb Hct MCV MCH MCHC RDW Plt Count MPV Neut % (Auto) Lymph % (Auto) [place] % (Auto) Eos % (Auto) Baso % (Auto) Neut # (Auto) Lymph # (Auto) [place] # (Auto) Eos # (Auto) Baso # (Auto) WBC Differential Differential Comment Sodium Potassium Chloride Carbon Dioxide Anion Gap BUN Creatinine Estimated GFR POC Glucose 266 H 276 H 355 H Random Glucose Calcium Phosphorus Magnesium Total Bilirubin AST ALT Alkaline Phosphatase Total Creatine Kinase CK-MB (CK-2) CK-MB (CK-2) % Total Protein Albumin - Impressions ITS Impressions Chest X-Ray 06/20/18 23:36 CONCLUSION: The lungs are clear. Abdomen/Pelvis CT 06/21/18 00:16 CONCLUSION: 1. Fat-containing periumbilical hernia. 2. 6.9 cm cystic left adnexal mass. Digital diagnosis includes ovarian cyst. Cystic ovarian neoplasm. No free fluid in the abdomen. 3. Mild hepatic steatosis. Discharge Plan - Discharge Disposition Patient Disposition: 01 Discharge Home - Discharge Condition Condition: Stable - Discharge Order Discharge Orders: Discharge Order (Routine); Ordered 06/23/18 Ordered By: Joe Spicer - Discharge Details Anticipated Discharge Date: 06/23/18 - Physicians Team Primary Care Provider: UNKNOWN, Attending Provider: Joe Spicer
== END 2018-06-23 09:50 | disposition home or self-care (01) ==
LOC: PHEDA 22:30 → PHED 22:30 → PHEDA 06-21 05:01 → PH3 06-21 05:04
PROVIDERS: ADMIT Hospitalist; ATTEND Hospitalist